=== PATIENT | female | born 1960 | race African-American/Black ===

== ENCOUNTER 2018-03-20 01:58 | Emergency (ER) | payer OTHER ==
[~2018-03-20] VITALS: Ht 154.9 cm; Wt 87.1 kg
[2018-03-20] MEDS ORDERED: COZAAR100 MG PO (02:44)
[2018-03-20] MEDS ORDERED: LIPITOR10 MG PO (02:44)
[2018-03-20] MEDS ORDERED: AMOXICILLIN 50500 MG PO (02:45)
[2018-03-20] MEDS ORDERED: ASPIR 8181 M1 PO (02:45)
[2018-03-20] MEDS ORDERED: PEPCID20 MG PO (02:57)
[2018-03-20] MEDS ORDERED: PREDNISONE 20 M20 MG PO (02:57)
[2018-03-20 03:47] VITALS: BP 132/76
== END 2018-03-20 03:40 | disposition home or self-care (01) ==
LOC: ER 01:58
DX: T78.49XA Other allergy, initial encounter (principal); H10.12 Acute atopic conjunctivitis, left eye; J30.9 Allergic rhinitis, unspecified; I10 Essential (primary) hypertension; Z88.8 Allergy status to other drugs, medicaments and biological substances; X58.XXXA Exposure to other specified factors, initial encounter

== ENCOUNTER 2018-12-29 09:17 | Emergency (ER) | payer OTHER ==
[~2018-12-29] VITALS: Ht 154.9 cm; Wt 89.4 kg
[~2018-12-29 09:17] MED LIST: AMOXICILLIN 50500 MG PO; ASPIR 8181 M1 PO; COZAAR100 MG PO; LIPITOR10 MG PO; PEPCID20 MG PO; PREDNISONE 20 M20 MG PO
[2018-12-29] MEDS ORDERED: TYLENOL EXTRA500 MG PO (10:51)
[2018-12-29] MEDS ORDERED: ROBAXIN 750 MG750 M1 PO (10:51)
[2018-12-29 12:10] VITALS: BP 140/77
== END 2018-12-29 12:11 | disposition home or self-care (01) ==
LOC: ER 09:17
DX: M47.896 Other spondylosis, lumbar region (principal); I10 Essential (primary) hypertension; Z88.8 Allergy status to other drugs, medicaments and biological substances

== ENCOUNTER → 2019-01-18 | Outpatient (CLI) | payer OTHER ==
[~2019-01-18] VITALS: Ht 154.9 cm; Wt 87.1 kg
[~2019-01-18] MED LIST changes: +BENADRYL25 MG PO; +FLEXERIL PO; +NAPROSYN500 MG PO; +ROBAXIN 750 MG750 M1 PO; +SAXENDA3 MG/0.5 M SUBQ; +TYLENOL EXTRA500 MG PO; +VITAMIN D5000 UNIT PO
[2019-01-18 12:34] VITALS: BP 134/79
--- NOTE | 2019-01-18 12:51 | NUR ---
Pain Clinic Assessment: 1. History of Osteoarthritis: YES History of Rheumatoid Arthritis: 2. Height: 5 ft. 1 in. 154.9 cm. Weight: 192.0 lb. oz. 87.091 kg. Patient's BMI: 36.3 3. Vital Signs: BP: 134/79 Pulse: 88 Resp: 16 Temp: 02 Sat: 97 ECG Mon: 4. Pain Intensity: 7 5. Fall Risk: Dizziness: Y Needs help standing or walking: N Fallen in the last 3 months: N Fall risk comments: 6. Patient on Blood Thinner: None 7. History of Hypertension: Y 8. Opioid Therapy greater than 6 weeks: N Opiate Contract Signed: 9. Risk Assessment Tool Provided: 10. Functional Assessment Tool: 11. Recreational Drug Use: Never Drug Type: Tobacco Use: Never Smoker Tobacco Type: Amount or Packs/day: How Many Years: Alcohol Use: Yes Frequency: Weekly Quant: 1
--- NOTE | 2019-01-21 07:41 | HPC ---
[facility] [address] [place] [address] PAIN MANAGEMENT CONSULTATION Name: GÓMEZ LAZO Room #: REG PEDRO Russo#: [id number] Admission: 01/18/19 ������������������ Attend Phys: Brian Ramsay DO Discharge: ������������������ Date of : 58 Report #: [id number] THIS REPORT FOR: //name// CC: Brian Neville DATE OF SERVICE: 01/18/2019 CHIEF COMPLAINT: Generalized myalgias. HISTORY OF PRESENT ILLNESS: As you know, the patient is a 58-year-old female with longstanding history of generalized upper back pain and low back pain. She reports a 25-year history of back symptoms. She states her pain has been treated through multiple pain services, the most recent was providing trigger point injections every 3-4 months with some improvement. She states she has tried acupuncture therapy in the past and this worked for about 3-4 days. The most recent trigger points were provided at [facility] with Dr. Mcgee. This clinic subsequently, losed approximately 2 years ago and the patient has not sought treatment except through her PCP and Emergency Department. She was seen in the Emergency Department at [facility] for chronic axial back pain issues and subsequently referred to our clinic. She indicates today pain is continuous, steady and constant; describes pain as shooting, cramping, aching, pulling, crushing, throbbing, pounding, sharp, stabbing and tender. No numbness and tingling. Places current pain score 7/10, daily average is 7-10/10, worst the pain has been is "12/10." The patient indicates that most activities exacerbate symptoms, nothing except for trigger point injections have improved pain. The patient does carry the diagnosis of fibromyalgia and is presenting as a fibromyalgia-type patient with generalized myalgias involving the cervical region, thoracic region, low back, bilateral legs, bilateral arms in a nondermatomal distribution. She has been referred to our clinic to discuss options for treatment. PAST MEDICAL HISTORY: 1. Hypertension. 2. Coronary artery disease. 3. Dyslipidemia. 4. Fibromyalgia. 5. Degenerative joint disease. 6. Osteoarthritis. PAST SURGICAL HISTORY: Cholecystectomy. Bilateral breast implants. SOCIAL HISTORY: The patient denies tobacco, IV or illicit drug use. Admits to [address] [address] PAIN MANAGEMENT CONSULTATION Name: GÓMEZ LAZO [facility] [id number] Admission: 01/18/19 ������������������ Attend Phys: Brian Ramsay DO Discharge: ������������������ Date of : 58 Report #: [id number] an occasional alcohol beverage. She is not working, has not been in the work force for greater than 2 years. She is receiving disability income for unknown reasons. She is not in litigation in regards to pain. REVIEW OF SYSTEMS: Positive for fatigue and weakness, frequent and recurrent headaches, double vision, cataracts, earaches with drainage, chronic sinus problems, rhinitis, frequent urination, incontinence and dribbling to urine, generalized myalgias. All other review of systems negative per 12-point review of systems, and those listed in history of present illness. Pain impact score 48/70 indicating moderate interference of daily activities secondary to pain. IMAGING: X-ray of the lumbar spine shows mild disk narrowing and vacuum changes at the L4-L5 level. The remainder of the x-ray imaging is normal. PQRS: The patient has no known osteoarthritis. No rheumatoid arthritis. She is placing pain score at 7/10. She is not a fall risk, has not had a fall in the last 3 months. She is not on blood thinners, but is treated for hypertension. She has been on opioids, but has not been on any consistent. Her opioid addiction potential is low based. Based on our functional assessment, pain impact score shows 48/70, moderate interference in daily activities. PHYSICAL EXAMINATION: VITAL SIGNS: Blood pressure 134/79, pulse 88, respiratory rate 16 and unlabored, the patient is 97% on room air. Height 5 feet 1 inch tall, weight 192 pounds, BMI calculated 36.3. GENERAL: Well-developed, well-nourished, well-hydrated, morbidly obese 58-year-old female appearing stated age, placing current pain score 7/10. HEENT: Normocephalic, atraumatic. Pupils equal, round, reactive to light. Extraocular muscles are intact. Sclerae nonicteric without injection. NEUROLOGIC: Cranial nerves 2-12 grossly intact. Speech is fluent. The patient deemed a fair historian. LUNGS: Clear, no wheeze, rhonchi or rales. CARDIOVASCULAR: Regular. No appreciable gallop, no rub. ABDOMEN: Soft, obese, normoactive bowel sounds. EXTREMITIES: Show no clubbing, no cyanosis, no edema. MUSCULOSKELETAL: The patient has tenderness to palpation at 15 of 18 tender points indicative of fibromyalgia. She has normal range of cervical motion, normal range of thoracic motion and normal range of the lumbar spine. There is mild pain generated with lateral flexion and extension of the lumbar region. Lower extremity strength equal and symmetrical. She is intact to light touch from T1 through T12 dermatomes and L1 through S2 dermatomes. Seated straight leg raising negative. Supine straight leg raising negative. Rachel's test negative. Modified Gaenslen's positive only for some axial back pain. [address] [place] [address] PAIN MANAGEMENT CONSULTATION Name: GÓMEZ LAZO Room #: REG Nano Russo#: [id number] Admission: 01/18/19 ������������������ Attend Phys: Brian Ramsay DO Discharge: ������������������ Date of : 58 Report #: [id number] ASSESSMENT: 1. Generalized myalgias. 2. Fibromyalgia. 3. Myofascial pain. 4. Chronic low back pain. 5. Chronic intractable pain. PLAN: 1. The patient has been referred to our service by her primary care physician and recent ER visit for evaluation for generalized myalgias. Based on her physical exam, the history the patient provides and the distribution of symptoms, it would appear that the patient is suffering from typical findings of fibromyalgia. It is not unusual to have symptoms that she is experiencing with fibromyalgia we discussed with the patient today. There is no finding in the lumbar spine that is concerning; in fact, the x-ray of the lumbar spine shows little or no pathology, mild disk narrowing and vacuum disk changes at the L4-L5 level. There is no foraminal stenosis, no central canal stenosis noted; in fact, minimal findings given her age and her body habitus. The consistent finding throughout the exam today would indicate fibromyalgia. We discussed treatment options with the patient today in regards to generalized fibromyalgia and chronic low back pain with no noted pathology. 2. We discussed physical therapy, stretching exercise, core strengthening and weight loss. This is the gold standard treatment for myofascial pain. We discussed medication management trialing anti-inflammatories and medications, specifically built to address fibromyalgia, this can be done through the primary care. These medications could include gabapentin, Lyrica, nortriptyline, amitriptyline, duloxetine, and Savella. Each of these could be trialled and determine if she sees improvement. We also discussed trigger point injections as a possible treatment option. Apparently, this was effective for the patient in the past. She was receiving these about every 4 months. Certainly, this would be an option for treatment. After reviewing the risks and benefits of all proposed treatment options, the patient chose to begin with trigger point injections, which she found effective in the past. 3. We have consented the patient undergo trigger point injections. We advised the patient of the risks of this procedure. These risks include but are not necessarily limited to bleeding, bruising, infection, worsening pain, no relief of pain, also risk of temporary or permanent muscle weakness, temporary or permanent nerve damage, possible pneumothorax and . The patient states she understood and wished to proceed. 4. No medication changes made at today's visit. Suggestions above for fibromyalgia treatment could be initiated through her PCP, but we have not offered these to the patient today. 5. We will see the patient back in followup visit on an as needed basis for further trigger point injections. We are hopeful the patient will see similar improvement that she has in the past with other trigger [place] [address] PAIN MANAGEMENT CONSULTATION Name: VIOLETMARIJANano Armando Room #: REG PEDRO Russo#: [id number] Admission: 01/18/19 ������������������ Attend Phys: Brian Ramsay DO Discharge: ������������������ Date of : 58 Report #: [id number] will be available to see her back on an as needed basis. 6. We wish to thank Dr. Neville for the referral of the patient to our clinic. We will keep you apprised of response to the trigger point injections provided. Again, we wish to thank you for the opportunity to see the patient in consultation. PROCEDURE NOTE DESCRIPTION OF PROCEDURE: Trigger point injections. After obtaining written consent, the patient was placed in a prone position. By palpating using a single finger, 8 trigger points were identified that reproduced the patient's typical radiating pain pattern. The trigger points were located in the paraspinal musculature of the upper thoracic and lower lumbar region. Each of the target sites of injections were cleansed using aseptic technique with chlorhexidine. A 25-gauge 2-inch needle was then advanced towards each trigger point until the patient's typical radiating pain pattern was reproduced. After negative aspiration for heme, 1 mL of a solution containing 1 mL 40 mg per mL, 40 mg total triamcinolone and 6 mL of bupivacaine 0.5% was injected in a fanned out distribution at each of the trigger points for a total volume of 8 mL being given. Sterile bandages were placed over each of the injection site. The patient tolerated the procedure well, carefully escorted to recovery room in stable condition. No apparent complications. VAS before procedure rated at 6/10, VAS following procedure rated at 6/10. After meeting our discharge criteria, the patient discharged home. ��������������������������������������������� <ELECTRONICALLY SIGNED> ���������������������������������������� By: Brian Ramsay DO ��������������������������������������������� 01/21/19 0741 [id number] 0026 Brian Ramsay DO /nt
== END | disposition home or self-care (01) ==
LOC: PAIN 06:57
DX: M79.18 Myalgia, other site (principal); G89.29 Other chronic pain; M54.5 Low back pain; I10 Essential (primary) hypertension; I25.10 Atherosclerotic heart disease of native coronary artery without angina pectoris; E78.5 Hyperlipidemia, unspecified; M19.90 Unspecified osteoarthritis, unspecified site; Z90.49 Acquired absence of other specified parts of digestive tract; Z98.890 Other specified postprocedural states; Z88.8 Allergy status to other drugs, medicaments and biological substances; Z79.82 Long term (current) use of aspirin; Z79.899 Other long term (current) drug therapy

== ENCOUNTER → 2019-02-08 | Outpatient (CLI) | payer OTHER ==
[~2019-02-08] VITALS: Ht 154.9 cm; Wt 86.2 kg
[2019-02-08 10:48] VITALS: BP 148/90
--- NOTE | 2019-02-08 10:55 | NUR ---
Pain Clinic Assessment: 1. History of Osteoarthritis: YES History of Rheumatoid Arthritis: 2. Height: 5 ft. 1 in. 154.9 cm. Weight: 190.0 lb. oz. 86.184 kg. Patient's BMI: 35.9 3. Vital Signs: BP: 148/90 Pulse: 129 Resp: 16 Temp: 02 Sat: 92 ECG Mon: 4. Pain Intensity: 5 5. Fall Risk: Dizziness: N Needs help standing or walking: N Fallen in the last 3 months: N Fall risk comments: 6. Patient on Blood Thinner: None 7. History of Hypertension: Y 8. Opioid Therapy greater than 6 weeks: N Opiate Contract Signed: 9. Risk Assessment Tool Provided: LOW RISK 0/3 10. Functional Assessment Tool: 48/ 11. Recreational Drug Use: Never Drug Type: Tobacco Use: Never Smoker Tobacco Type: Amount or Packs/day: How Many Years: Alcohol Use: Yes Frequency: Weekly Quant: 1
--- NOTE | 2019-02-15 08:14 | HPC ---
[facility] [address] [place] [address] PAIN MANAGEMENT CONSULTATION Name: GÓMEZ LAZO Room #: REG PEDRO Russo#: [id number] Admission: 02/08/19 ������������������ Attend Phys: Brian Ramsay DO Discharge: ������������������ Date of : 58 Report #: [id number] THIS REPORT FOR: //name// CC: Brian Neville MD DATE OF SERVICE: 02/08/2019 CHIEF COMPLAINT: Generalized myalgias, bilateral lower extremity pain with paresthesias. HISTORY OF PRESENT ILLNESS: As you know, the patient is a 58-year-old female with longstanding history of generalized upper back pain, chronic low back pain, bilateral lower extremity pain with a 25-year history of back symptoms. She has sought evaluation for multiple pain services, transferred to our service to discuss the possibility of undergoing a lumbar epidural injection. At last visit, the patient chose to undergo trigger point injections and was advised this would only provide temporary improvement, that no long-term benefit would be noted. She returns stating about a week and a half to 2 weeks of improvement. She continues to experience low back pain, bilateral lower extremity symptoms for which the patient was referred to our clinic to trial an epidural injection. She returns today to undergo this injection. She is placing pain score today 5/10, states her pain is tender, aching, stiffness, exacerbated with standing, moving, bending. Repositioning, medications, heat and cold compresses, rest tends to improve pain. She has returned today to undergo lumbar epidural injection under fluoroscopic guidance. ALLERGIES: LISINOPRIL. CURRENT MEDICATIONS: Atorvastatin, losartan, aspirin, methocarbamol, diphenhydramine, naproxen, cholecalciferol, Saxenda. SOCIAL HISTORY: The patient denies tobacco, alcohol, IV or illicit drug use. She is unaccompanied today. IMAGING: No new imaging available. PQRS: The patient has known osteoarthritic changes of the bilateral shoulders, bilateral hips and low back. No rheumatoid arthritis. She is placing pain intensity today at around 5/10. She is not a fall risk, has not had a fall in the last 3 months. She is not on blood thinners, but is treated for hypertension. She is not on chronic opioids. She is a low risk for opioid addiction. Pain impact tool indicates 48/70, moderate interference of daily activities secondary to pain. [address] [address] PAIN MANAGEMENT CONSULTATION Name: GÓMEZ LAZO Room #: REG PEDRO Russo#: [id number] Admission: 02/08/19 ������������������ Attend Phys: Brian Ramsay DO Discharge: ������������������ Date of : 58 Report #: [id number] PHYSICAL EXAMINATION: VITAL SIGNS: Blood pressure 140/90, pulse 129, respiratory rate 16 and unlabored. The patient is 92% on room air. Height 5 feet 1 inches tall, weight 190 pounds, BMI calculated 35.9. GENERAL: Well-developed, well-nourished, well-hydrated, exogenously obese 58-year-old female, appears older than stated age, placing current pain score at 5/10. HEENT: Normocephalic, atraumatic. Pupils equal, round, reactive to light. EXTREMITIES: Show no clubbing, no cyanosis, and no edema. MUSCULOSKELETAL: The patient has tenderness to palpation over the paraspinal musculature of the thoracic and lumbar spine. No spinous process tenderness. Seated straight leg raising is negative. Supine straight leg raising negative. JAY test negative. Modified Gaenslen's positive for some axial low back pain. ASSESSMENT: 1. Possible lumbar radiculopathy. 2. Generalized myalgias. 3. Myofascial pain. 4. Chronic low back pain. 5. Chronic intractable pain. PLAN: 1. The patient returns today in followup visit having noted about a week and a half worth of improvement with the trigger point injections provided at last visit. This is fairly typical for treatments with trigger points. She returns today in followup visit per the request of her PCP to trial an epidural injection under fluoroscopic guidance to determine if this will improve her low back pain and bilateral lower extremity symptoms. She has been advised of the risks and benefits of this procedure. These risks include, but are not necessarily limited to bleeding, bruising, infection, worsening pain, no relief of pain, also risk of temporary or permanent muscle weakness, temporary or permanent nerve damage, possible paralysis and . The patient states understood and wished to proceed. 2. No medication changes made at today's visit. The patient will continue current medical therapy as previously prescribed. 3. We will see the patient back in followup visit on an as needed basis for possible next in the series of lumbar epidural injections. PROCEDURE NOTE DESCRIPTION OF PROCEDURE: L5-S1 interlaminar epidural steroid injection under fluoroscopic guidance. This is the first procedure of the first series that the patient is undergoing. After obtaining written consent, the patient was taken back to the [facility] [address] [place] [address] PAIN MANAGEMENT CONSULTATION Name: GÓMEZ LAZO Room #: REG [facility]#: [id number] Admission: 02/08/19 ������������������ Attend Phys: Brian Ramsay DO Discharge: ������������������ Date of : 58 Report #: [id number] suite, placed in a prone position with pillow under the abdomen to decrease lumbar lordosis. The skin overlying the lumbosacral area was then prepped and draped in aseptic fashion. The L5-S1 vertebral interspace was then identified by AP fluoroscopy. The skin and subcutaneous tissue overlying the target site of injection was anesthetized with 3 mL 1% lidocaine. A 20-guage 3-1/2 inch Tuohy needle was then advanced under fluoroscopic guidance towards the epidural space using a midline approach. The epidural space was identified using loss of resistance to air technique. After negative aspiration for heme or cerebrospinal fluid, a total of 1 mL of Omnipaque was injected. A lumbar epidurogram was confirmed using both AP and lateral fluoroscopy. After negative aspiration for heme or cerebrospinal fluid, 5 mL of a solution containing 2 mL, 40 mg per mL, 80 mL total of triamcinolone, 3 mL of lidocaine 1% was injected in increments. Contrast spread was noted posterior epidural space. The needle was then retracted approximately half way and needle tract flushed with 1 mL of 1% lidocaine. Needle was then removed. There were no apparent sensory or motor deficits in the lower extremity following the procedure. A sterile bandage was placed over the injection site. The heart rate, pulse, oximetry and blood pressure were continuously monitored after the procedure. There were no apparent complications. The patient tolerated the procedure well and was carefully escorted to the recovery room in stable condition. There were no apparent complications. After meeting discharge criteria, the patient was then discharged home. ��������������������������������������������� <ELECTRONICALLY SIGNED> ���������������������������������������� By: Brian Ramsay DO ��������������������������������������������� 02/15/19 0814 0821 1040 Brian Ramsay DO /nt
== END | disposition home or self-care (01) ==
LOC: PAIN 07:08
DX: M54.16 Radiculopathy, lumbar region (principal); M79.18 Myalgia, other site; G89.29 Other chronic pain; I10 Essential (primary) hypertension; E66.9 Obesity, unspecified; Z68.35 Body mass index [BMI] 35.0-35.9, adult; Z88.8 Allergy status to other drugs, medicaments and biological substances; Z79.899 Other long term (current) drug therapy; Z79.82 Long term (current) use of aspirin

== ENCOUNTER → 2019-03-01 | Outpatient (CLI) | payer OTHER ==
[~2019-03-01] VITALS: Ht 154.9 cm; Wt 85.7 kg
[2019-03-01 11:05] VITALS: BP 147/101
--- NOTE | 2019-03-01 11:20 | NUR ---
Pain Clinic Assessment: 1. History of Osteoarthritis: YES History of Rheumatoid Arthritis: Not Applicable 2. Height: 5 ft. 1 in. 154.9 cm. Weight: 189.0 lb. oz. 85.730 kg. Patient's BMI: 35.7 3. Vital Signs: BP: 147/101 Pulse: 83 Resp: 16 Temp: 02 Sat: 100 ECG Mon: 4. Pain Intensity: 7 5. Fall Risk: Dizziness: N Needs help standing or walking: N Fallen in the last 3 months: N Fall risk comments: 6. Patient on Blood Thinner: None 7. History of Hypertension: Y 8. Opioid Therapy greater than 6 weeks: N Opiate Contract Signed: 9. Risk Assessment Tool Provided: LOW RISK 0 10. Functional Assessment Tool: 11. Recreational Drug Use: Never Drug Type: Tobacco Use: Never Smoker Tobacco Type: Amount or Packs/day: How Many Years: Alcohol Use: Yes Frequency: Special Occasions Quant: 1
--- NOTE | 2019-03-09 09:14 | HPC ---
[facility] [address] [place] [address] PAIN MANAGEMENT CONSULTATION Name: GÓMEZ LAZO Room #: REG PEDRO Russo#: [id number] Admission: 03/01/19 ������������������ Attend Phys: Brian Ramsay DO Discharge: ������������������ Date of : 58 Report #: [id number] THIS REPORT FOR: //name// CC: Brian Neville MD DATE OF SERVICE: 03/01/2019 REFERRING PHYSICIAN: Negin Neville M.D. CHIEF COMPLAINT: Generalized myalgias and bilateral lower extremity pain with paresthesias. HISTORY OF PRESENT ILLNESS: As you know, the patient is a 59-year-old female with longstanding history of generalized myalgias involving upper back, chronic low back and bilateral lower extremities apparently for over 25 years. She underwent a lumbar epidural injection at our last visit to address lumbar radicular symptoms with reported 75% improvement in overall pain. Unfortunately, her symptoms have begun to return to where she is now placing pain score 7/10 She states the pain is exacerbated with standing movement, bending and improves with repositioning, relaxation, rest, heat and cold compresses and massage as well as previous epidural injection. She returns today to undergo #2 in the series of epidural injections. ALLERGIES: LISINOPRIL. CURRENT MEDICATIONS: See chart. SOCIAL HISTORY: The patient denies tobacco, alcohol or IV or illicit drug use. She is unaccompanied today. IMAGING DATA: No new imaging available. PQRS: The patient has osteoarthritic changes of bilateral shoulders, bilateral hips and low back. No rheumatoid arthritis. She is placing pain intensity today at 7/10. She is not a fall risk, has not had a fall in the last 3 months. She is not on blood thinners. She is treated for hypertension. She is not on chronic opioids, has a low opioid addiction potential, placing pain impact score 48/70, [id number] interference of daily activities secondary to pain. PHYSICAL EXAMINATION: VITAL SIGNS: Blood pressure 147/101, pulse is 83 and respiratory rate 16 and unlabored. The patient is 100% on room air. Height 5 feet 1 inch tall, weight 189 pounds and BMI calculated 35.7. GENERAL: Well-developed, well-nourished and well-hydrated exogenously obese [address] [address] PAIN MANAGEMENT CONSULTATION Name: GÓMEZ LAZO Room #: REG [facility] Rafaela#: [id number] Admission: 03/01/19 ������������������ Attend Phys: Brian Ramsay DO Discharge: ������������������ Date of : 58 Report #: [id number] 59-year-old female appearing stated age, placing current pain score 7/10. HEENT: Normocephalic and atraumatic. Pupils equal, round and reactive to light. EXTREMITIES: Show no clubbing, no cyanosis and no edema. MUSCULOSKELETAL: Lower extremity strength equal and symmetrical 5/5. Deconditioning noted in the lower extremities. Seated straight leg raising negative. Supine straight leg raising negative. Rachel's test negative. Modified Gaenslen's positive for axial low back pain. Ankle clonus negative. Babinski is negative. Deep palpation over the paraspinal musculature of the thoracic and lumbar spine causes intensification of multiple tender points, no trigger points. ASSESSMENT: 1. Symptomatic lumbar radiculopathy. 2. Generalized myalgias. 3. Myofascial pain. 4. Essential hypertension. 5. Chronic intractable pain. PLAN: 1. The patient returns today in followup visit indicating 75% improvement in overall pain with the epidural injection provided at last visit. She returns today to undergo next in the series in hopes of building on success of previous intervention. The patient has been advised risks and benefits of the procedure, states understood and wished to proceed. 2. The patient's blood pressure today is elevated to 147/101, previous blood pressure noted to be 140/90. She will need to return to her PCP for adjustments in her hypertensive medications as control is not optimized. We will defer to the primary team for adjustments in those medications. 3. We will have the patient return to our clinic on an as needed basis for the possible third and final epidural injection in this series. PROCEDURE NOTE DESCRIPTION OF PROCEDURE: L5-S1 interlaminar epidural steroid injection under fluoroscopic guidance. This is the second procedure of the first series that the patient is undergoing. After obtaining written consent, the patient was taken back to the fluoroscopy suite, placed in a prone position with pillow under the abdomen to decrease lumbar lordosis. The skin overlying the lumbosacral area was then prepped and draped in aseptic fashion. The L5-S1 vertebral interspace was then identified by AP fluoroscopy. The skin and subcutaneous tissue overlying the target site of injection was anesthetized with 3 mL 1% lidocaine. [address] [address] PAIN MANAGEMENT CONSULTATION Name: GÓMEZ LAZO Room #: REG PEDRO Russo#: [id number] Admission: 03/01/19 ������������������ Attend Phys: Brian Ramsay DO Discharge: ������������������ Date of : 58 Report #: [id number] A 20-gauge 4-1/2 inch Tuohy needle was then advanced under fluoroscopic guidance towards the epidural space using a right paramedian approach. The epidural space was identified using loss of resistance to air technique. After negative aspiration for heme or cerebrospinal fluid, a total of 1 mL of Omnipaque was injected. A lumbar epidurogram was confirmed using both AP and lateral fluoroscopy. After negative aspiration for heme or cerebrospinal fluid, 5 mL of a solution containing 2 mL 40 mg per mL, 80 mg total triamcinolone, 3 mL lidocaine 1% was injected in increments. Contrast spread was noted posterior epidural space. The needle was then retracted approximately half way and needle tract flushed with 1 mL of 1% lidocaine. Needle was then removed. There were no apparent sensory or motor deficits in the lower extremity following the procedure. A sterile bandage was placed over the injection site. The heart rate, pulse, oximetry and blood pressure were continuously monitored after the procedure. There were no apparent complications. The patient tolerated the procedure well and was carefully escorted to the recovery room in stable condition. There were no apparent complications. After meeting discharge criteria, the patient was then discharged home. ��������������������������������������������� <ELECTRONICALLY SIGNED> ���������������������������������������� By: Brian Ramsay DO ��������������������������������������������� 03/09/19 0914 [id number] Brina Ramsay DO /nt
== END | disposition home or self-care (01) ==
LOC: PAIN 02-23 06:49
DX: M54.16 Radiculopathy, lumbar region (principal); G89.29 Other chronic pain; M79.18 Myalgia, other site; I10 Essential (primary) hypertension; M19.90 Unspecified osteoarthritis, unspecified site; Z88.8 Allergy status to other drugs, medicaments and biological substances; Z98.890 Other specified postprocedural states; Z79.899 Other long term (current) drug therapy; E66.09 Other obesity due to excess calories; Z68.35 Body mass index [BMI] 35.0-35.9, adult; Z79.82 Long term (current) use of aspirin

== ENCOUNTER → 2019-07-12 | Outpatient (CLI) | payer OTHER ==
[~2019-07-12] VITALS: Ht 154.9 cm; Wt 86.5 kg
[~2019-07-12] MED LIST changes: +AMLODIPINE BESY10 MG PO; +CLARITIN10 MG PO; +IRBESARTAN300 MG PO; +VOLTAREN GEL 1100 G1 TOP
[2019-07-12 10:49] VITALS: BP 129/72
--- NOTE | 2019-07-12 11:09 | NUR ---
Pain Clinic Assessment: 1. History of Osteoarthritis: YES History of Rheumatoid Arthritis: Not Applicable 2. Height: 5 ft. 1 in. 154.9 cm. Weight: 190.6 lb. oz. 86.456 kg. Patient's BMI: 36.0 3. Vital Signs: BP: 129/72 Pulse: 82 Resp: 16 Temp: 02 Sat: 98 ECG Mon: 4. Pain Intensity: 3 NOW 8-9 LAST WEEK 5. Fall Risk: Dizziness: N Needs help standing or walking: N Fallen in the last 3 months: N Fall risk comments: 6. Patient on Blood Thinner: None 7. History of Hypertension: Y 8. Opioid Therapy greater than 6 weeks: N Opiate Contract Signed: 9. Risk Assessment Tool Provided: LOW RISK 0 10. Functional Assessment Tool: 11. Recreational Drug Use: Never Drug Type: Tobacco Use: Never Smoker Tobacco Type: Amount or Packs/day: How Many Years: Alcohol Use: Yes Frequency: Quant:
--- NOTE | 2019-07-13 07:46 | HPC ---
[facility] [address] [place] [address] PAIN MANAGEMENT CONSULTATION Name: GÓMEZ LAZO Room #: REG PEDRO Russo#: [id number] Admission: 07/12/19 Attend Phys: Brian Ramsay DO Discharge: Date of : 58 Report #: [id number] THIS REPORT FOR: //name// CC: Brian Neville MD DATE OF SERVICE: 07/12/2019 REFERRING PHYSICIAN: Negin Neville MD. CHIEF COMPLAINT: Low back pain, bilateral lower extremity pain, generalized myalgias. HISTORY OF PRESENT ILLNESS: As you know, the patient is a 59-year-old female with longstanding history of generalized myalgias involving upper back, chronic low back and bilateral lower extremities. This apparently had been going on for about 25 years. She was seen in consultation per the request of her PCP to trial an epidural injection under fluoroscopic guidance, for which she did excellent reporting 75% improvement in overall pain. She returned for a second in the series of lumbar epidural injections, for which the patient now reports 90% improvement in overall pain lasting until just the last couple of weeks. She had a slow and progressive return of symptoms without inciting injury or trauma leading to pain up to a level of 8-9/10. Today, the patient rates pain at 3/10 as she has improved spontaneously. She denies new injury or trauma that may have led to symptom occurrence. She returns today requesting to undergo the third in the series of lumbar epidural injections in the 6 months. She understands that next injection cannot be provided until after 08/11/2019. She is aware and does wish to undergo the procedure today. She reports no changes in her medical history since our last visit and has had no new injuries or trauma. ALLERGIES: LISINOPRIL. CURRENT MEDICATIONS: Cyclobenzaprine, amlodipine, irbesartan, loratadine, cholecalciferol, diphenhydramine, aspirin and atorvastatin. SOCIAL HISTORY: The patient denies tobacco, alcohol, IV or illicit drug use. She is unaccompanied today. IMAGING: There is no new imaging available. PQRS: The patient has known arthritic changes of bilateral shoulders, bilateral hips and the lumbar spine. No rheumatoid arthritis. Pain intensity today is at 3/10. She is not a fall risk, has not had a fall in last 3 months, not on blood thinners, but is treated for hypertension. She is not on chronic opioids and [address] [address] PAIN MANAGEMENT CONSULTATION Name: GÓMEZ LAZO Room #: REG CLI Mague#: [id number] Admission: 07/12/19 Attend Phys: Brian Ramsay DO Discharge: Date of : 58 Report #: [id number] does have a low opioid addiction potential based on our assessment tool. She is placing pain impact score/functional assessment at 48/70, moderate interference of daily activities secondary to pain. PHYSICAL EXAMINATION: VITAL SIGNS: Blood pressure 129/72, pulse 82, respiratory rate 16 and unlabored. The patient is 98% on room air. Height 5 feet and 1 inch tall. Weight 190.6 pounds and BMI calculated 36. GENERAL: A well-developed, well-nourished, well-hydrated exogenously obese 59-year-old female appearing stated age, pain is rated today around 3/10. HEENT: Normocephalic, atraumatic. Pupils equal, round, reactive to light. Extraocular muscles are intact. Speech is fluent. EXTREMITIES: Show no clubbing, no cyanosis and no edema. All 4 extremities move purposefully . MUSCULOSKELETAL: Lower extremity strength equal and symmetrical 5/5. Seated straight leg raising negative. Supine straight leg raising is equivocal. Rachel's test is negative. Modified Gaenslen's positive for axial low back pain. Ankle clonus negative. Babinski remains negative. Lumbar provocation testing including extension, rotation, lateral flexion all intensify axial back symptoms. ASSESSMENT: 1. Lumbar radiculopathy. 2. Lumbosacral spondylosis with radicular symptoms. 3. Facet arthropathy of the lumbar spine. 4. Generalized myalgias. 5. Myofascial pain. 6. Chronic intractable pain. PLAN: 1. The patient returns today in followup visit indicating a 90% improvement in overall pain with previous epidural injection, this lasted until approximately 2 weeks ago where she had a slow and progressive return of symptoms up to a level of 8-9/10. She returns today with pain level of 3/10 requesting to undergo next in the series of lumbar epidural injections to build on success of previous intervention. I have advised the patient this is the third in the series of epidural injections. Next available injection would not be until after 08/11/2019. We are hopeful the patient will see good and prolonged benefit with today's procedure allowing us to delay next in the series of epidural injections until which time her pain intensifies. The patient is agreeable. 2. No medication changes made at today's visit. The patient will continue current medical therapy as previously prescribed. 3. We will see the patient back in followup visit on an as needed basis possible next in the series of lumbar epidural injections. PROCEDURE NOTE [address] [address] PAIN MANAGEMENT CONSULTATION Name: GÓMEZ LAZO Room #: REG [facility] Barbara#: [id number] Admission: 07/12/19 Attend Phys: Brian Ramsay DO Discharge: Date of : 58 Report #: [id number] DESCRIPTION OF PROCEDURE: L5-S1 interlaminar epidural steroid injection under fluoroscopic guidance. This is the third procedure of the first series that the patient is undergoing. After obtaining written consent, the patient was taken back to the fluoroscopy suite, placed in a prone position with pillow under the abdomen to decrease lumbar lordosis. The skin overlying the lumbosacral area was then prepped and draped in aseptic fashion. The L5-S1 vertebral interspace was then identified by AP fluoroscopy. The skin and subcutaneous tissue overlying the target site of injection was anesthetized with 3 mL 1% lidocaine. A 20-gauge 3-1/2-inch Tuohy needle was then advanced under fluoroscopic guidance towards the epidural space using a left paramedian approach. The epidural space was identified using loss of resistance to air technique. After negative aspiration for heme or cerebrospinal fluid, a total of 1 mL of Omnipaque was injected. A lumbar epidurogram was confirmed using both AP and lateral fluoroscopy. After negative aspiration for heme or cerebrospinal fluid, 5 mL of a solution containing 2 mL, 40 mg per mL, 80 mg total triamcinolone was injected in increments. Contrast spread was noted posterior epidural space. The needle was then retracted approximately half way and needle tract flushed with 1 mL of 1% lidocaine. Needle was then removed. There were no apparent sensory or motor deficits in the lower extremity following the procedure. A sterile bandage was placed over the injection site. The heart rate, pulse, oximetry and blood pressure were continuously monitored after the procedure. There were no apparent complications. The patient tolerated the procedure well and was carefully escorted to the recovery room in stable condition. There were no apparent complications. After meeting discharge criteria, the patient was then discharged home. <ELECTRONICALLY SIGNED> By: Brian Ramsay DO 07/13/19 0746 [id number] [id number] Brian Ramsay DO /nt
== END | disposition home or self-care (01) ==
LOC: PAIN 06:49
DX: M47.27 Other spondylosis with radiculopathy, lumbosacral region (principal); M12.88 Other specific arthropathies, not elsewhere classified, other specified site; M51.16 Intervertebral disc disorders with radiculopathy, lumbar region; M79.18 Myalgia, other site; G89.29 Other chronic pain; I10 Essential (primary) hypertension; Z88.8 Allergy status to other drugs, medicaments and biological substances; Z79.899 Other long term (current) drug therapy

== ENCOUNTER → 2020-01-25 | Outpatient (CLI) | payer OTHER ==
[~2020-01-25] VITALS: Ht 154.9 cm; Wt 86.2 kg
[2020-01-25 12:51] VITALS: BP 115/56
--- NOTE | 2020-01-25 13:12 | NUR ---
Pain Clinic Assessment: 1. History of Osteoarthritis: YES History of Rheumatoid Arthritis: Not Applicable 2. Height: 5 ft. 1 in. 154.9 cm. Weight: 190.0 lb. oz. 86.184 kg. Patient's BMI: 35.9 3. Vital Signs: BP: 115/56 Pulse: 85 Resp: 14 Temp: 02 Sat: 98 ECG Mon: 4. Pain Intensity: 3-4 5. Fall Risk: Dizziness: N Needs help standing or walking: N Fallen in the last 3 months: N Fall risk comments: 6. Patient on Blood Thinner: None 7. History of Hypertension: Y 8. Opioid Therapy greater than 6 weeks: N Opiate Contract Signed: 9. Risk Assessment Tool Provided: LOW RISK 0 10. Functional Assessment Tool: 11. Recreational Drug Use: Never Drug Type: Tobacco Use: Never Smoker Tobacco Type: Amount or Packs/day: How Many Years: Alcohol Use: Yes Frequency: Quant:
--- NOTE | 2020-01-31 07:45 | HPC ---
[facility] [address] [address] PAIN MANAGEMENT CONSULTATION Name: GÓMEZ LAZO Room #: REG PEDRO Russo#: [id number] Admission: 01/25/20 Attend Phys: Brian Ramsay DO Discharge: Date of : 58 Report #: [id number] THIS REPORT FOR: cc: Negin Neville MD, Karla L. MD Johnson, James E. DO ~ DATE OF SERVICE: 01/25/2020 REFERRING PHYSICIAN: Negin Neville MD CHIEF COMPLAINT: Low back pain, bilateral lower extremity pain and upper back pain. HISTORY OF PRESENT ILLNESS: As you know, the patient is a pleasant 59-year-old female who returns today in followup visit now reporting pain score 3/10-4/10. She states her pain is more of tenderness, aching, and stiffness. She states pain is exacerbated with standing, moving, bending and repositioning improves with relaxation rest, heat and cold compresses and previous epidural injections. The most recent epidural injection gave greater than 60% improvement in overall pain that is ongoing. She returns today in followup visit to undergo next in the series of epidural injections under fluoroscopic guidance. She also wishes to discuss exercise programs that she is considering whether or not this would be recommended. She denies new injury, new trauma or any changes in medical history since our last visit. ALLERGIES: LISINOPRIL. CURRENT MEDICATIONS: Voltaren gel apply topically up to 4 times a day to affected areas, cyclobenzaprine 10 mg p.r.n., amlodipine 10 mg once a day, irbesartan 300 mg once a day, loratadine 10 mg once a day, diphenhydramine 25 mg 1-2 tablets p.o. at bedtime, aspirin 81 mg per day, atorvastatin 10 mg per day. SOCIAL HISTORY: The patient denies any changes in her social history. She is unaccompanied today. PQRS: The patient has known arthritic changes of the lumbar spine, bilateral hips and knees. No rheumatoid arthritis. She is placing pain intensity today 3-03/02. She is not a fall risk, has not had a fall in last 3 months. She is not on blood thinners, but is treated for hypertension. She is not on opioids, but does have a low opioid addiction potential based on our assessment tool. Pain impact score is 48 of 70 indicating moderate to severe interference of daily activities secondary to pain. PHYSICAL EXAMINATION: [facility] [address] [place] [address] PAIN MANAGEMENT CONSULTATION Name: GÓMEZ LAZO Room #: REG [facility]#: [id number] Admission: 01/25/20 Attend Phys: Brian Ramsay DO Discharge: Date of : 58 Report #: [id number] VITAL SIGNS: Blood pressure 115/56, pulse 85, respiratory rate 14 and unlabored, the patient is 98% on room air. Height 5 feet 1 inch tall, weight 190 pounds, BMI calculated 35.9. GENERAL: Well-developed, well-nourished, well-hydrated exogenously obese 59-year-old female appearing stated age, placing current pain score at 3-4/10. HEENT: Normocephalic and atraumatic. Pupils are equal, round, and reactive to light. EXTREMITIES: Show no clubbing, no cyanosis, no edema. MUSCULOSKELETAL: Lower extremity strength appears symmetrical 5/5, intact to light touch from L1 through S2 dermatomes. Seated straight leg raising negative. Supine straight leg raising negative. Rachel's test negative. Modified Gaenslen's positive for axial low back pain. Ankle clonus negative. ASSESSMENT: 1. Chronic lumbar radiculopathy. 2. Lumbosacral spondylosis with radiculopathy. 3. Lumbar degeneration. 4. Chronic intractable pain. PLAN: 1. The patient returns today in followup visit to undergo next in the series of epidural injections under fluoroscopic guidance. She reports greater than 60% improvement in overall pain that is ongoing from her previous epidural injection, she returns to undergo next in the series. She is denying new injury or trauma that may have led to symptom reoccurrence causing pain of level of 3-4/10. She has been advised risks and benefits of the procedure, states understood and wished to proceed. 2. The patient and I did discuss a concern the patient had about starting an exercise program. We recommend the patient initially start with some light yoga. Apparently, she has ability to join an exercise program at her [facility] and we highly recommend that she do so. We recommend yoga as the initial exercise program followed by some walking and more strenuous exercises as she improves from a strength standpoint. The patient will begin this next week. 3. No medication changes made at today's visit. The patient will continue current medical therapy. 4. We will see the patient back in followup visit on an as needed basis for possible next in the series of lumbar epidural injections. <ELECTRONICALLY SIGNED> By: Brian Ramsay DO 01/31/20 0745 1347 2235 Brian Ramsay DO /nt
--- NOTE | 2020-01-31 07:45 | P ---
[facility] [place] [address] [place] [address] PROCEDURE REPORT Name: GÓMEZ LAZO Room #: REG PEDRO Russo#: [id number] Admission: 01/25/20 Attend Phys: Brian Ramsay DO Discharge: Date of : 58 Report #: [id number] THIS REPORT FOR: cc: Negin Neville MD, Karla L. MD Johnson, James E. DO ~ DATE OF SERVICE: 01/25/2020 PROCEDURE: L5-S1 interlaminar epidural steroid injection under fluoroscopic guidance. DESCRIPTION OF PROCEDURE: After obtaining written consent, the patient was taken back to fluoroscopy suite, placed in prone position with pillow under abdomen to decrease lumbar lordosis. Skin overlying lumbosacral area then prepped and draped in aseptic fashion. L5-S1 vertebral interspace was identified by AP fluoroscopy. Skin and subcutaneous tissue overlying target site of injection anesthetized with 3 mL of 1% lidocaine. A 20-gauge 3.5-inch Tuohy needle advanced under fluoroscopic guidance towards the epidural space using a midline approach. Epidural space identified using loss of resistance to air technique. After negative aspiration for heme or cerebrospinal fluid, 1 mL of Omnipaque injected. Lumbar epidurogram confirmed using both AP and lateral fluoroscopy. After negative aspiration for heme or cerebrospinal fluid, 5 mL of a solution containing 2 mL 40 mg per mL, 80 mg total triamcinolone along with 3 mL of lidocaine 1% injected slowly. Needle retracted long term, flushed with 1 mL of 1% lidocaine and then removed. Sterile bandage placed over injection site. No new motor deficits present in lower extremity following procedure. The patient tolerated procedure well, carefully escorted to recovery room in stable condition. No apparent complications. After meeting discharge criteria, the patient discharged home. <ELECTRONICALLY SIGNED> By: Brian Ramsay DO 01/31/20 0745 1347 2239 Brian Ramsay DO /nt
== END | disposition home or self-care (01) ==
LOC: PAIN 01-24 12:50
DX: M51.16 Intervertebral disc disorders with radiculopathy, lumbar region (principal); M47.27 Other spondylosis with radiculopathy, lumbosacral region; G89.29 Other chronic pain; I10 Essential (primary) hypertension; M19.90 Unspecified osteoarthritis, unspecified site; Z98.890 Other specified postprocedural states; Z79.899 Other long term (current) drug therapy; Z88.8 Allergy status to other drugs, medicaments and biological substances